=== PATIENT | female | born 1970 | race Caucasian/White ===

== ENCOUNTER 2017-08-26 21:06 | Inpatient (IN) | payer OTHER ==
[2017-08-26] MEDS ORDERED: fentaNYL 100 MCG/2 ML SDV IVPUSH ONE ×3 (21:29→23:09)
[2017-08-26] MEDS ORDERED: Lactated Ringers 1,000 ML IV ONE (21:40)
--- NOTE | 2017-08-26 21:44 | EDM.PDOC ---
ED HPI GENERAL MEDICAL PROBLEM - General Chief Complaint: Back Pain or Injury Stated Complaint: FELL OFF HORSE Time Seen by Provider: 08/26/17 21:37 Source of Information: Reports: Patient, Family, RN Notes Reviewed History Limitations: Reports: No Limitations - History of Present Illness INITIAL COMMENTS - FREE TEXT/NARRATIVE: 46-year-old female presents to the emergency department today with complaint of left-sided chest pain, while hour prior she had been bucked off her horse landed predominantly on her back and left side she is complaining of pain on the ribs below her left breast Back Pain Score (Numeric/FACES): 10 - Related Data Allergies Allergy/AdvReac Type Severity Reaction Status Date / Time No Known Allergies Allergy Verified 08/26/17 21:14 Home Meds: Home Meds Sertraline HCl [Zoloft] 100 mg PO DAILY 08/26/17 [History] 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: Neurological History: Reports: Migraines Psychiatric History: Reports: Depression Oncologic (Cancer) History: Reports: Ovarian - Past Surgical History GI Surgical History: Reports: Appendectomy, Cholecystectomy Female Surgical History: Reports: Hysterectomy Social & Family History - Family History Family Medical History: Noncontributory - Tobacco Use Smoking Status *Q: Never Smoker - Caffeine Use Caffeine Use: Reports: Coffee - Recreational Drug Use Recreational Drug Use: No ED ROS GENERAL - Review of Systems Review Of Systems: See Below Constitutional: Reports: No Symptoms Respiratory: Reports: Shortness of Breath Cardiovascular: Reports: Chest Pain GI/Abdominal: Reports: No Symptoms Musculoskeletal: Reports: No Symptoms Skin: Reports: No Symptoms Neurological: Reports: No Symptoms ED EXAM, UPPER BACK/NECK PAIN - Physical Exam Exam: See Below Text/Narrative:: Chest tender to palpation underneath her left breast Exam Limited By: No Limitations General Appearance: Alert, Moderate Distress Throat/Mouth Exam: Normal Inspection, Normal Lips, Normal Teeth, Normal Gums, Normal Oropharynx, Normal Voice, No Airway Compromise Head Exam: Atraumatic, Normocephalic Neck Exam: Non-Tender, Full Range of Motion, Normal Alignment, Normal Inspection Cardiovascular/Respiratory: Regular Rate, Rhythm, No M/R/G GI/Abdominal: Soft, Non-Tender Course - Vital Signs Last Recorded V/S: Last Vital Signs Temp 97.8 F 08/26/17 21:15 Pulse 116 H 08/27/17 00:11 Resp 18 08/27/17 00:11 BP 189/108 H 08/27/17 00:11 Pulse Ox 97 08/27/17 00:11 - Orders/Labs/Meds Orders: Active Orders 24 hr Category Date Time Status Chest w Cont [CT] Stat Exams 08/26/17 21:41 Taken Iopamidol [Isovue-300 (61%)] Med 08/26/17 22:30 Active 100 ml IV . DIRECTED Sodium Chloride 0.9% [Normal Saline] 70 ml Med 08/26/17 22:30 Active IV ASDIRECTED Sodium Chloride 0.9% [Saline Flush] Med 08/26/17 22:30 Active 10 ml FLUSH ASDIRECTED PRN Medication Orders Sodium Chloride (Normal Saline) 70 mls @ 3 mls/sec IV ASDIRECTED CATALINO Last Admin: 08/26/17 22:47 Dose: 3 mls/sec Iopamidol (Isovue-300 (61%)) 100 ml IV . DIRECTED CATALINO Last Admin: 08/26/17 22:47 Dose: 100 ml Sodium Chloride (Saline Flush) 10 ml FLUSH ASDIRECTED PRN PRN Reason: Keep Vein Open Last Admin: 08/26/17 22:47 Dose: 10 ml Meds: Medications Generic Name Dose Route Start Last Admin Trade Name Freq PRN Reason Stop Dose Admin Sodium Chloride 70 mls @ 3 mls/sec 08/26/17 22:30 08/26/17 22:47 Normal Saline IV 3 mls/sec ASDIRECTED CATALINO Administration Iopamidol 100 ml 08/26/17 22:30 08/26/17 22:47 Isovue-300 (61%) IV 100 ml . DIRECTED CATALINO Administration Sodium Chloride 10 ml 08/26/17 22:30 08/26/17 22:47 Saline Flush FLUSH 10 ml ASDIRECTED PRN Administration Keep Vein Open Discontinued Medications Generic Name Dose Route Start Last Admin Trade Name Freq PRN Reason Stop Dose Admin Cyclobenzaprine HCl 10 mg 08/26/17 23:09 08/26/17 23:14 Flexeril PO 08/26/17 23:10 10 mg ONETIME ONE Administration Fentanyl 50 mcg 08/26/17 21:29 08/26/17 21:46 Sublimaze IVPUSH 08/26/17 21:30 50 mcg ONETIME ONE Administration Fentanyl 50 mcg 08/26/17 21:40 08/26/17 22:46 Sublimaze IVPUSH 08/26/17 21:41 50 mcg ONETIME ONE Administration Fentanyl 100 mcg 08/26/17 23:09 08/26/17 23:14 Sublimaze IVPUSH 08/26/17 23:10 100 mcg ONETIME ONE Administration Hydromorphone HCl 0.5 mg 08/27/17 00:16 08/27/17 00:28 Dilaudid IVPUSH 08/27/17 00:17 0.5 mg ONETIME ONE Administration Lactated Ringer's 1,000 mls @ 999 mls/hr 08/26/17 21:40 08/26/17 21:46 Ringers, Lactated IV 08/26/17 22:40 999 mls/hr BOLUS ONE Administration Midazolam HCl 1 mg 08/27/17 00:18 08/27/17 00:28 Versed 1 Mg/Ml IVPUSH 08/27/17 00:19 1 mg ONETIME ONE Administration Departure - Departure Time of Disposition: 00:30 Disposition: Admitted As Inpatient 65 Condition: Fair Clinical Impression: Multiple fractures of ribs, left side, initial encounter for closed fracture, Pneumothorax, left - Discharge Information Referrals: PCP,None [Primary Care Provider] - Forms: ED Department Discharge - My Orders Last 24 Hours: My Active Orders 08/26/17 21:41 Chest w Cont [CT] Stat 08/26/17 22:30 Iopamidol [Isovue-300 (61%)] 100 ml IV . DIRECTED Sodium Chloride 0.9% [Normal Saline] 70 ml IV ASDIRECTED Sodium Chloride 0.9% [Saline Flush] 10 ml FLUSH ASDIRECTED PRN - Assessment/Plan Last 24 Hours: My Active Orders 08/26/17 21:41 Chest w Cont [CT] Stat 08/26/17 22:30 Iopamidol [Isovue-300 (61%)] 100 ml IV . DIRECTED Sodium Chloride 0.9% [Normal Saline] 70 ml IV ASDIRECTED Sodium Chloride 0.9% [Saline Flush] 10 ml FLUSH ASDIRECTED PRN Plan: Assessment Acuity = acute Site and laterality = pneumothorax with multiple rib fractures 3 through 8 on the left side Etiology = secondary trauma blocked off a horse Manifestations = pain Location of injury = Home Lab values = CT scan describes fractures or pneumothorax above Plan Called discussed case with general surgeon vocational guidance counselor he agreed, and evaluate the patient emergency department for admission placement of chest tube prior to discharge from ED This note was dictated using [employer] voice recognition software please call with any questions on syntax or mayo.
[2017-08-26] MEDS ORDERED: Iopamidol 612 MG/ML 100 ML Bottle IV SCH (22:30)
[2017-08-26] MEDS ORDERED: Sodium Chloride 0.9% 10 ML Syringe FLUSH PRN (22:30)
[2017-08-26] MEDS ORDERED: Cyclobenzaprine 10 MG Tab PO ONE (23:09)
[2017-08-27] MEDS ORDERED: HYDROmorphone 0.5 MG/0.5 ML Syringe IVPUSH ONE (00:16)
[2017-08-27] MEDS ORDERED: Midazolam 1 MG/ML 2 ML SDV IVPUSH ONE (00:18)
[2017-08-27] MEDS ORDERED: Lidocaine 1% with EPINEPHrine 1:100,000 50 ML MDV INJECT ONE (00:29)
[2017-08-27] MEDS ORDERED: Lidocaine 1% with EPINEPHrine 1:100,000 50 ML MDV ONE (00:31)
[2017-08-27] MEDS ORDERED: Bacitracin Oint 1 GM U/D Packet ONE (00:53)
[2017-08-27] MEDS ORDERED: Bacitracin Oint 28.35 GM Tube TOP ONE (00:58)
[2017-08-27] MEDS ORDERED: Docusate Sodium 100 MG Cap PO PRN (01:07)
[2017-08-27] MEDS ORDERED: Ondansetron 4 MG/2 ML SDV IV PRN (01:07)
[2017-08-27] MEDS: D5 1/2 NS w/ 20 mEq/L KCl 1,000 ML IV SCH ×2 (02:34→20:26)
[2017-08-27] MEDS: HYDROmorphone/Normal Saline 15 MG/30 ML PCA IV SCH (07:10)
--- NOTE | 2017-08-27 08:50 | CR ---
Chest 1V Frontal HISTORY: Post chest tube FINDINGS: Portable chest, 0115 hours. Left chest tube has been placed. The tip overlies the lower left chest. No pneumothorax or pleural fl uid is seen. No acute infiltrate is identified. Heart size appears borderline enlarged for the AP samir hnique. Pulmonary vasculature is not engorged. Left lateral rib fractures seen on earlier CT chest [facility] are not apparent on this image. IMPRESSION: Satisfactory left chest tube placement. No residual pneumothorax is identified.
--- NOTE | 2017-08-27 09:11 | OR ---
DATE OF PROCEDURE: 08/27/2017 PREOPERATIVE DIAGNOSES: 1. Left pneumothorax. 2. Left 3 through 8 rib fractures. POSTOPERATIVE DIAGNOSES: 1. Left pneumothorax. 2. Left 3 through 8 rib fractures. PROCEDURE: Left chest tube placement. SURGEON: Perry Rodriguez MD. ANESTHESIA: Lidocaine 1% with epinephrine local. Versed 1 mg IV, Dilaudid 0.5 mg IV. INDICATION: This 46-year-old white female was riding a horse on the evening of the 26 of August, she fell off the horse. She presents to the emergency room complaining of left chest pain. CAT scan showed a left pneumothorax and rib fractures #3 through 8 on the left. A request was made for placement of a left chest tube, this is a small pneumothorax. I counseled her for placing of left chest tube, including risks and alternatives, and she gave her informed consent to proceed. DESCRIPTION OF PROCEDURE: The patient's left chest was prepped and draped in the usual sterile fashion. Lidocaine 1% with epinephrine was infiltrated about the anterior axillary line just inferior to the areolar complex level. A small oblique incision parallel to the ribs was made. Additional lidocaine was introduced into the chest as we coursed the planned chest tube placement superiorly. We then coursed over the rib and entered the chest releasing some air. A 20-Greenlandic chest tube was then obtained and was placed up into the left chest, it was anchored with #1 Ethibond suture. A sterile dressing was applied. The tube was cut to appropriate length and attached to the chest tube suction device. We placed it at 20 mmHg suction. Chest x-ray shows the tube is in the left chest and it looks fine. There is no obvious pneumothorax. She tolerated the procedure well. Perry Rodriguez MD /[id number] [facility]
[2017-08-27] MEDS: Sertraline 50 MG Tab PO SCH (10:55)
[2017-08-27] MEDS: hydrOXYzine HCl 100 MG/2 ML SDV IM PRN ×2 (10:55→20:27)
[2017-08-27] MEDS: Potassium Chloride 20 MEQ Tab.ER PO SCH ×2 (10:55→20:26)
[2017-08-27] MEDS: Enoxaparin 40 MG/0.4 ML Syringe SUBCUT SCH (12:59)
[2017-08-27] MEDS: Labetalol 20 MG/4 ML Syringe IVPUSH PRN ×2 (13:00→20:29)
[2017-08-27] MEDS: Cyclobenzaprine 10 MG Tab PO PRN (20:27)
[2017-08-28] MEDS: Cyclobenzaprine 10 MG Tab PO PRN (04:36)
[2017-08-28] MEDS: hydrOXYzine HCl 100 MG/2 ML SDV IM PRN (04:36)
[2017-08-28] MEDS ORDERED: Naloxone 0.4 MG/ML SDV IV PRN (08:24)
[2017-08-28] MEDS: Sertraline 50 MG Tab PO SCH (08:39)
[2017-08-28] MEDS: Enoxaparin 40 MG/0.4 ML Syringe SUBCUT SCH (08:39)
--- NOTE | 2017-08-28 08:56 | CR ---
Chest 1V Frontal HISTORY: Chest tube COMPARISON: 08/27/2017 FINDINGS: Chest tube remains in place left lung base. No residual or recurrent pneumothorax is seen. There is very mild linear atelectasis at the lung bases. Remainder the chest is clear. Cardiomediasti nal silhouette is within normal limits and stable. No vascular redistribution or pleural fluid is see n. IMPRESSION: 1. Stable left chest tube. No residual or recurrent pneumothorax. 2. There is minimal linear atelectasis at the lung bases. 3. No other acute chest abnormality is identified.
[2017-08-28] MEDS: Labetalol 20 MG/4 ML Syringe IVPUSH PRN (12:30)
[2017-08-28] MEDS ORDERED: HYDROmorphone/Normal Saline 15 MG/30 ML PCA IV ONE (12:51)
[2017-08-28] MEDS: HYDROmorphone/Normal Saline 15 MG/30 ML PCA IV SCH (12:53)
--- NOTE | 2017-08-28 12:53 | PCM.SURGPN ---
- General Info Date of Service: 08/27/17 Date of Surgery/Procedure: 08/28/17 POD#: 1 Post-Op Diagnosis: Traumatic pneumothorax with rib fractures Admission Diagnosis/Problem: Pneumothorax Functional Status: Reports: Pain Controlled, Tolerating Diet, Urinating - Review of Systems General: Reports: Other (Pain improved) HEENT: Reports: No Symptoms Pulmonary: Reports: Other (Left chest pain with coughing.) Cardiovascular: Reports: No Symptoms Gastrointestinal: Reports: No Symptoms Genitourinary: Reports: No Symptoms Musculoskeletal: Reports: Other (Left chest pain) Skin: Reports: No Symptoms Neurological: Reports: No Symptoms Psychiatric: Reports: No Symptoms - Patient Data Vitals - Most Recent: Last Vital Signs Temp 98.1 F 08/28/17 11:34 Pulse 100 08/28/17 11:34 Resp 20 08/28/17 11:34 BP 151/90 H 08/28/17 11:34 Pulse Ox 92 L 08/28/17 11:34 Weight - Most Recent: 216 lb 6.139 oz I&O - Last 24 Hours: Intake & Output 08/27/17 08/28/17 08/28/17 22:59 06:59 14:59 Intake Total 1380 Output Total 1000 300 190 Balance 380 -300 -190 Lab Results Last 24 Hrs: Laboratory Results - last 24 hr 08/28/17 08/28/17 Range/Units 04:54 04:54 WBC 11.0 (4.5-11.0) K/uL RBC 4.28 (3.30-5.50) M/uL Hgb 12.3 (12.0-15.0) g/dL Hct 37.4 (36.0-48.0) % MCV 87 (80-98) fL MCH 29 (27-31) pg MCHC 33 (32-36) % Plt Count 274 (150-400) K/uL Sodium 138 L (140-148) mmol/L Potassium 4.2 (3.6-5.2) mmol/L Chloride 101 (100-108) mmol/L Carbon Dioxide 28 (21-32) mmol/L Anion Gap 13.2 (5.0-14.0) mmol/L BUN 8 (7-18) mg/dL Creatinine 0.7 (0.6-1.0) mg/dL Est Cr Clr Drug Dosing 93.52 mL/min Estimated GFR (MDRD) > 60 (>60) Glucose 122 H (74-106) mg/dL Calcium 8.7 (8.5-10.1) mg/dL Med Orders - Current: Current Medications Cyclobenzaprine HCl (Flexeril) 10 mg PO Q6H PRN PRN Reason: Muscle Spasm Last Admin: 08/28/17 04:36 Dose: 10 mg Docusate Sodium (Colace) 100 mg PO BID PRN PRN Reason: Constipation Enoxaparin Sodium (Lovenox) 40 mg SUBCUT DAILY [facility] Last Admin: 08/28/17 08:39 Dose: 40 mg Hydromorphone HCl (Dilaudid Sales Associate Key Holder 15 Mg In Ns 30 Ml) 15 mg IV ASDIRECTED [facility]; Protocol Last Admin: 08/27/17 07:10 Dose: 15 mg Hydroxyzine HCl (Vistaril) 50 - 75 mg IM Q6H PRN PRN Reason: Pain Last Admin: 08/28/17 04:36 Dose: 75 mg Potassium Chloride/Dextrose/Sod Cl (D5 1/2 Ns W/ 20 Meq/L Kcl) 1,000 mls @ 50 mls/hr IV ASDIRECTED [facility] Last Admin: 08/27/17 20:26 Dose: 50 mls/hr Labetalol HCl (Normodyne) 10 mg IVPUSH Q1H PRN; Protocol PRN Reason: Hypertension Last Admin: 08/28/17 12:30 Dose: 10 mg Naloxone HCl (Narcan) 0.1 mg IV ASDIRECTED PRN PRN Reason: decreased respiratory rate Ondansetron HCl (Zofran) 4 mg IV Q6H PRN PRN Reason: Nausea/Vomiting Sertraline HCl (Zoloft) 100 mg PO DAILY [facility] Last Admin: 08/28/17 08:39 Dose: 100 mg Discontinued Medications Bacitracin (Bacitracin Oint 1 Gm) Confirm Administered Dose 3 dose .ROUTE .STK- MED ONE Stop: 08/27/17 00:54 Last Admin: 08/27/17 00:58 Dose: 3 dose Bacitracin (Bacitracin Oint) 3 gm TOP ONETIME ONE Stop: 08/27/17 00:59 Last Admin: 08/27/17 00:59 Dose: Not Given Cyclobenzaprine HCl (Flexeril) 10 mg PO ONETIME ONE Stop: 08/26/17 23:10 Last Admin: 08/26/17 23:14 Dose: 10 mg Fentanyl (Sublimaze) 50 mcg IVPUSH ONETIME ONE Stop: 08/26/17 21:30 Last Admin: 08/26/17 21:46 Dose: 50 mcg Fentanyl (Sublimaze) 50 mcg IVPUSH ONETIME ONE Stop: 08/26/17 21:41 Last Admin: 08/26/17 22:46 Dose: 50 mcg Fentanyl (Sublimaze) 100 mcg IVPUSH ONETIME ONE Stop: 08/26/17 23:10 Last Admin: 08/26/17 23:14 Dose: 100 mcg Hydromorphone HCl (Dilaudid) 0.5 mg IVPUSH ONETIME ONE Stop: 08/27/17 00:17 Last Admin: 08/27/17 00:28 Dose: 0.5 mg Lactated Ringer's (Ringers, Lactated) 1,000 mls @ 999 mls/hr IV BOLUS ONE Stop: 08/26/17 22:40 Last Admin: 08/26/17 21:46 Dose: 999 mls/hr Sodium Chloride (Normal Saline) 70 mls @ 3 mls/sec IV ASDIRECTED [facility] Last Admin: 08/26/17 22:47 Dose: 3 mls/sec Iopamidol (Isovue-300 (61%)) 100 ml IV . DIRECTED [facility] Last Admin: 08/26/17 22:47 Dose: 100 ml Lidocaine/Epinephrine (Xylocaine 1% With Epinephrine 1:100,000) 5 ml INJECT ONETIME ONE Stop: 08/27/17 00:30 Last Admin: 08/27/17 00:37 Dose: 5 ml Lidocaine/Epinephrine (Xylocaine 1% With Epinephrine 1:100,000) Confirm Administered Dose 50 ml .ROUTE .STK-MED ONE Stop: 08/27/17 00:32 Last Admin: 08/27/17 00:38 Dose: Not Given Midazolam HCl (Versed 1 Mg/Ml) 1 mg IVPUSH ONETIME ONE Stop: 08/27/17 00:19 Last Admin: 08/27/17 00:28 Dose: 1 mg Potassium Chloride (Klor-Con M20) 40 meq PO BID [facility] Stop: 08/27/17 21:01 Last Admin: 08/27/17 20:26 Dose: 40 meq Sodium Chloride (Saline Flush) 10 ml FLUSH ASDIRECTED PRN PRN Reason: Keep Vein Open Last Admin: 08/26/17 22:47 Dose: 10 ml - Exam Wound/Incisions: Dressing Dry and Intact Quality Assessment: Supplemental Oxygen General: Alert, Oriented, Cooperative, No Acute Distress Lungs: Clear to Auscultation Cardiovascular: Regular Rate, Regular Rhythm GI/Abdominal Exam: Normal Bowel Sounds, Soft, Non-Tender Extremities: Normal Inspection, Normal Range of Motion Skin: Warm, Dry Psy/Mental Status: Alert, Normal Affect, Normal Mood - Problem List Review Problem List Initiated/Reviewed/Updated: Yes - My Orders Last 24 Hours: Active Orders 24 hr Category Date Time Status Chest 1V Frontal [CR] DAILY Exams 08/29/17 05:15 Ordered Chest 1V Frontal [CR] DAILY Exams 08/30/17 05:15 Ordered Chest 1V Frontal [CR] DAILY Exams 08/31/17 05:15 Ordered Chest 1V Frontal [CR] DAILY Exams 09/01/17 05:15 Ordered Chest 1V Frontal [CR] DAILY Exams 09/02/17 05:15 Ordered Labetalol [Normodyne] Med 08/27/17 12:39 Active 10 mg IVPUSH Q1H PRN Naloxone [Narcan] Med 08/28/17 08:24 Active 0.1 mg IV ASDIRECTED PRN Medication Orders Cyclobenzaprine HCl (Flexeril) 10 mg PO Q6H PRN PRN Reason: Muscle Spasm Last Admin: 08/28/17 04:36 Dose: 10 mg Admin: 08/27/17 20:27 Dose: 10 mg Docusate Sodium (Colace) 100 mg PO BID PRN PRN Reason: Constipation Enoxaparin Sodium (Lovenox) 40 mg SUBCUT DAILY CATALINO Last Admin: 08/28/17 08:39 Dose: 40 mg Admin: 08/27/17 12:59 Dose: 40 mg Hydromorphone HCl (Dilaudid Sales Associate Key Holder 15 Mg In Ns 30 Ml) 15 mg IV ASDIRECTED CATALINO; Protocol Last Admin: 08/27/17 07:10 Dose: 15 mg Hydroxyzine HCl (Vistaril) 50 - 75 mg IM Q6H PRN PRN Reason: Pain Last Admin: 08/28/17 04:36 Dose: 75 mg Admin: 08/27/17 20:27 Dose: 75 mg Admin: 08/27/17 10:55 Dose: 75 mg Potassium Chloride/Dextrose/Sod Cl (D5 1/2 Ns W/ 20 Meq/L Kcl) 1,000 mls @ 50 mls/hr IV ASDIRECTED [facility] Last Admin: 08/27/17 20:26 Dose: 50 mls/hr Infusion: 08/27/17 20:26 Dose: 50 mls/hr Admin: 08/27/17 02:34 Dose: 50 mls/hr Labetalol HCl (Normodyne) 10 mg IVPUSH Q1H PRN; Protocol PRN Reason: Hypertension Last Admin: 08/28/17 12:30 Dose: 10 mg Admin: 08/27/17 20:29 Dose: 10 mg Admin: 08/27/17 13:00 Dose: 10 mg Naloxone HCl (Narcan) 0.1 mg IV ASDIRECTED PRN PRN Reason: decreased respiratory rate Ondansetron HCl (Zofran) 4 mg IV Q6H PRN PRN Reason: Nausea/Vomiting Sertraline HCl (Zoloft) 100 mg PO DAILY [facility] Last Admin: 08/28/17 08:39 Dose: 100 mg Admin: 08/27/17 10:55 Dose: 100 mg - Assessment Assessment (Free Text/Narrative):: CXR with lung expanded. No air leak. - Plan Plan (Free Text/Narrative):: Encourage pulmonary toilet. Chest tube placed to water seal.
[2017-08-28] MEDS: D5 1/2 NS w/ 20 mEq/L KCl 1,000 ML IV SCH (16:36)
[2017-08-29] MEDS ORDERED: Bacitracin Oint 1 GM U/D Packet TOP ONE (06:01)
[2017-08-29] MEDS: Enoxaparin 40 MG/0.4 ML Syringe SUBCUT SCH (08:19)
[2017-08-29] MEDS: Sertraline 50 MG Tab PO SCH (08:21)
--- NOTE | 2017-08-29 09:15 | CR ---
Chest 1V Frontal HISTORY: Chest tube COMPARISON: 08/28/2017 FINDINGS: Left chest tube is stable. There is no pneumothorax. There is mild linear atelectasis at the lung bas es bilaterally. Upper chest is clear. Heart and mediastinum are stable. No vascular redistribution or pleural fluid can be seen. Bony structures and soft tissues are unremarkable. IMPRESSION: Stable postoperative chest.
--- NOTE | 2017-08-29 09:17 | CR ---
Chest 1V Frontal HISTORY: S/P chest tube removal COMPARISON: 2 hours 27 minutes prior. FINDINGS: Portable chest, 0640 hours. Left chest tube has been removed. No residual or recurrent pneumothorax is identified. Probable mild atelectasis at the lung bases is stable. No new infiltrate is identified. Cardiomediastinal silhouett e is stable. Remainder the exam is unchanged. IMPRESSION: No residual or recurrent pneumothorax status post left chest tube removal.
[2017-08-29] MEDS: Acetaminophen/oxyCODONE 325-5 MG Tab PO PRN ×2 (13:03→19:25)
[2017-08-29] MEDS: Ibuprofen 600 MG Tab PO SCH ×2 (14:06→18:13)
[2017-08-29] MEDS: Cyclobenzaprine 10 MG Tab PO PRN ×2 (14:10→21:14)
[2017-08-30] MEDS: Ibuprofen 600 MG Tab PO SCH ×2 (00:34→07:40)
[2017-08-30] MEDS: Acetaminophen/oxyCODONE 325-5 MG Tab PO PRN ×2 (03:47→11:49)
[2017-08-30] MEDS: Cyclobenzaprine 10 MG Tab PO PRN (07:43)
--- NOTE | 2017-08-30 09:19 | PCM.SURGPN ---
- General Info Date of Service: 08/30/17 Date of Surgery/Procedure: 08/27/17 POD#: 3 Post-Op Diagnosis: Rib fractures with pneumothorax Admission Diagnosis/Problem: Pneumothorax on left Functional Status: Reports: Tolerating Diet, Ambulating, Urinating, Incentive Spirometry - Review of Systems General: Reports: No Symptoms HEENT: Reports: No Symptoms Pulmonary: Reports: Other (Chest pain due to rib fractures) Cardiovascular: Reports: No Symptoms Gastrointestinal: Reports: No Symptoms, Other (Had BM) Genitourinary: Reports: No Symptoms Musculoskeletal: Reports: No Symptoms Skin: Reports: No Symptoms Neurological: Reports: No Symptoms Psychiatric: Reports: No Symptoms - Patient Data Vitals - Most Recent: Last Vital Signs Temp 96.9 F 08/30/17 07:44 Pulse 96 08/30/17 07:44 Resp 16 08/30/17 07:44 BP 127/74 08/30/17 07:44 Pulse Ox 93 L 08/30/17 07:44 Weight - Most Recent: 216 lb 6.139 oz I&O - Last 24 Hours: Intake & Output 08/29/17 08/30/17 08/30/17 22:59 06:59 14:59 Intake Total 360 600 200 Output Total 750 650 Balance -390 -50 200 Med Orders - Current: Current Medications Cyclobenzaprine HCl (Flexeril) 10 mg PO Q6H PRN PRN Reason: Muscle Spasm Last Admin: 08/30/17 07:43 Dose: 10 mg Docusate Sodium (Colace) 100 mg PO BID PRN PRN Reason: Constipation Last Admin: 08/29/17 19:25 Dose: 100 mg Enoxaparin Sodium (Lovenox) 40 mg SUBCUT DAILY [facility] Last Admin: 08/29/17 08:19 Dose: 40 mg Hydroxyzine HCl (Vistaril) 50 - 75 mg IM Q6H PRN PRN Reason: Pain Last Admin: 08/28/17 04:36 Dose: 75 mg Ketorolac Tromethamine (Toradol) 10 mg PO Q6H [facility] Stop: 09/04/17 09:16 Labetalol HCl (Normodyne) 10 mg IVPUSH Q1H PRN; Protocol PRN Reason: Hypertension Last Admin: 08/28/17 12:30 Dose: 10 mg Ondansetron HCl (Zofran) 4 mg IV Q6H PRN PRN Reason: Nausea/Vomiting Oxycodone/Acetaminophen (Percocet 325-5 Mg) 1 - 2 tab PO Q4H PRN PRN Reason: Pain Last Admin: 08/30/17 03:47 Dose: 2 tab Sertraline HCl (Zoloft) 100 mg PO DAILY [facility] Last Admin: 08/29/17 08:21 Dose: 100 mg Discontinued Medications Bacitracin (Bacitracin Oint 1 Gm) Confirm Administered Dose 3 dose .ROUTE .STK- MED ONE Stop: 08/27/17 00:54 Last Admin: 08/27/17 00:58 Dose: 3 dose Bacitracin (Bacitracin Oint) 3 gm TOP ONETIME ONE Stop: 08/27/17 00:59 Last Admin: 08/27/17 00:59 Dose: Not Given Bacitracin (Bacitracin Oint 1 Gm) 3 dose TOP ONETIME ONE Stop: 08/29/17 06:02 Last Admin: 08/29/17 07:25 Dose: 3 dose Cyclobenzaprine HCl (Flexeril) 10 mg PO ONETIME ONE Stop: 08/26/17 23:10 Last Admin: 08/26/17 23:14 Dose: 10 mg Fentanyl (Sublimaze) 50 mcg IVPUSH ONETIME ONE Stop: 08/26/17 21:30 Last Admin: 08/26/17 21:46 Dose: 50 mcg Fentanyl (Sublimaze) 50 mcg IVPUSH ONETIME ONE Stop: 08/26/17 21:41 Last Admin: 08/26/17 22:46 Dose: 50 mcg Fentanyl (Sublimaze) 100 mcg IVPUSH ONETIME ONE Stop: 08/26/17 23:10 Last Admin: 08/26/17 23:14 Dose: 100 mcg Hydromorphone HCl (Dilaudid) 0.5 mg IVPUSH ONETIME ONE Stop: 08/27/17 00:17 Last Admin: 08/27/17 00:28 Dose: 0.5 mg Hydromorphone HCl (Dilaudid [employer] 15 Mg In Ns 30 Ml) 15 mg IV ASDIRECTED [facility]; Protocol Last Admin: 08/28/17 12:53 Dose: 15 mg Hydromorphone HCl (Dilaudid [employer] 15 Mg In Ns 30 Ml) Confirm Administered Dose 15 mg IV .STK-MED ONE Stop: 08/28/17 12:52 Last Admin: 08/28/17 14:54 Dose: Not Given Lactated Ringer's (Ringers, Lactated) 1,000 mls @ 999 mls/hr IV BOLUS ONE Stop: 08/26/17 22:40 Last Admin: 08/26/17 21:46 Dose: 999 mls/hr Sodium Chloride (Normal Saline) 70 mls @ 3 mls/sec IV ASDIRECTED [facility] Last Admin: 08/26/17 22:47 Dose: 3 mls/sec Potassium Chloride/Dextrose/Sod Cl (D5 1/2 Ns W/ 20 Meq/L Kcl) 1,000 mls @ 50 mls/hr IV ASDIRECTED [facility] Last Admin: 08/28/17 16:36 Dose: 50 mls/hr Ibuprofen (Motrin) 600 mg PO Q6H [facility] Last Admin: 08/30/17 07:40 Dose: 600 mg Iopamidol (Isovue-300 (61%)) 100 ml IV . DIRECTED [facility] Last Admin: 08/26/17 22:47 Dose: 100 ml Lidocaine/Epinephrine (Xylocaine 1% With Epinephrine 1:100,000) 5 ml INJECT ONETIME ONE Stop: 08/27/17 00:30 Last Admin: 08/27/17 00:37 Dose: 5 ml Lidocaine/Epinephrine (Xylocaine 1% With Epinephrine 1:100,000) Confirm Administered Dose 50 ml .ROUTE .STK-MED ONE Stop: 08/27/17 00:32 Last Admin: 08/27/17 00:38 Dose: Not Given Midazolam HCl (Versed 1 Mg/Ml) 1 mg IVPUSH ONETIME ONE Stop: 08/27/17 00:19 Last Admin: 08/27/17 00:28 Dose: 1 mg Naloxone HCl (Narcan) 0.1 mg IV ASDIRECTED PRN PRN Reason: decreased respiratory rate Potassium Chloride (Klor-Con M20) 40 meq PO BID [facility] Stop: 08/27/17 21:01 Last Admin: 08/27/17 20:26 Dose: 40 meq Sodium Chloride (Saline Flush) 10 ml FLUSH ASDIRECTED PRN PRN Reason: Keep Vein Open Last Admin: 08/26/17 22:47 Dose: 10 ml - Exam Wound/Incisions: Dressing Dry and Intact Quality Assessment: No: Supplemental Oxygen General: Alert, Oriented, Cooperative, No Acute Distress Lungs: Clear to Auscultation, Normal Respiratory Effort Cardiovascular: Regular Rate, Regular Rhythm GI/Abdominal Exam: Normal Bowel Sounds, Soft, Non-Tender, No Organomegaly Extremities: Normal Inspection Skin: Warm, Dry, Intact Psy/Mental Status: Alert, Normal Affect, Normal Mood - Problem List Review Problem List Initiated/Reviewed/Updated: Yes - My Orders Last 24 Hours: Active Orders 24 hr Category Date Time Status Chest 1V Frontal [CR] DAILY Exams 09/01/17 05:15 Stop Req Chest 1V Frontal [CR] DAILY Exams 09/02/17 05:15 Stop Req Acetaminophen/oxyCODONE [Percocet 325-5 MG] Med 08/29/17 12:22 Active 1 - 2 tab PO Q4H PRN Ketorolac [Toradol] Med 08/30/17 09:15 Ordered 10 mg PO Q6H Convert IV to Peripheral Lock [Convert IV to Saline Oth 08/29/17 12:34 Ordered Lock] [OM.PC] Routine Medication Orders Cyclobenzaprine HCl (Flexeril) 10 mg PO Q6H PRN PRN Reason: Muscle Spasm Last Admin: 08/30/17 07:43 Dose: 10 mg Admin: 08/29/17 21:14 Dose: 10 mg Admin: 08/29/17 14:10 Dose: 10 mg Admin: 08/28/17 04:36 Dose: 10 mg Admin: 08/27/17 20:27 Dose: 10 mg Docusate Sodium (Colace) 100 mg PO BID PRN PRN Reason: Constipation Last Admin: 08/29/17 19:25 Dose: 100 mg Enoxaparin Sodium (Lovenox) 40 mg SUBCUT DAILY [facility] Last Admin: 08/29/17 08:19 Dose: 40 mg Admin: 08/28/17 08:39 Dose: 40 mg Admin: 08/27/17 12:59 Dose: 40 mg Hydroxyzine HCl (Vistaril) 50 - 75 mg IM Q6H PRN PRN Reason: Pain Last Admin: 08/28/17 04:36 Dose: 75 mg Admin: 08/27/17 20:27 Dose: 75 mg Admin: 08/27/17 10:55 Dose: 75 mg Ketorolac Tromethamine (Toradol) 10 mg PO Q6H [facility] Stop: 09/04/17 09:16 Labetalol HCl (Normodyne) 10 mg IVPUSH Q1H PRN; Protocol PRN Reason: Hypertension Last Admin: 08/28/17 12:30 Dose: 10 mg Admin: 08/27/17 20:29 Dose: 10 mg Admin: 08/27/17 13:00 Dose: 10 mg Ondansetron HCl (Zofran) 4 mg IV Q6H PRN PRN Reason: Nausea/Vomiting Oxycodone/Acetaminophen (Percocet 325-5 Mg) 1 - 2 tab PO Q4H PRN PRN Reason: Pain Last Admin: 08/30/17 03:47 Dose: 2 tab Admin: 08/29/17 19:25 Dose: 2 tab Admin: 08/29/17 13:03 Dose: 1 tab Sertraline HCl (Zoloft) 100 mg PO DAILY [facility] Last Admin: 08/29/17 08:21 Dose: 100 mg Admin: 08/28/17 08:39 Dose: 100 mg Admin: 08/27/17 10:55 Dose: 100 mg - Assessment Assessment (Free Text/Narrative):: Patient feels ready to go home if her pain could be under better control (we are giving her Percocet and ibuprofen). - Plan Plan (Free Text/Narrative):: Try Toradol, stop ibuprofen. Hopefully home soon.
[2017-08-30] MEDS ORDERED: Ketorolac 10 MG Tab PO SCH (10:00)
[2017-08-30] MEDS: Enoxaparin 40 MG/0.4 ML Syringe SUBCUT SCH (10:02)
[2017-08-30] MEDS: Sertraline 50 MG Tab PO SCH (10:04)
== END 2017-08-30 12:41 | disposition home or self-care (01) | DRG 200 ==
LOC: JP.ED 21:06 → JP.ICU 08-27 01:07 → JP.MS 08-28 14:40 → UNDODISIN 08-30 12:41
PROVIDERS: ADMIT Surgery; ATTEND Surgery
PROC: 0W9B30Z Drainage of Left Pleural Cavity with Drainage Device, Percutaneous Approach (ICD-10-PCS; principal; 2017-08-27)
DX: S27.0XXA Traumatic pneumothorax, initial encounter (principal); S22.42XA Multiple fractures of ribs, left side, initial encounter for closed fracture; V80.010A Animal-rider injured by fall from or being thrown from horse in noncollision accident, initial encounter; F32.9 Major depressive disorder, single episode, unspecified; Z85.43 Personal history of malignant neoplasm of ovary
CPT/HCPCS: 36415; 71045; 71045-26; 71260; 80048; 80053; 85027; 96361; 96374; 96375; 99285-25; A9270-GY; J1170; J1650; J2250; J3010; J3410; J3480; J7030; J7050; J7120; Q9967